=== PATIENT | male | born 1990 | race Caucasian/White ===

== ENCOUNTER → 2016-08-23 | Outpatient (CLI) | payer OTHER ==
[~2016-08-23] MED LIST: ESOM20CA PO; IBUP-1724 PO; OXYC5TAB84 PO; PSEU30TA36 PO
--- NOTE | 2016-08-23 08:42 | DI ---
Indication: ITS.REASON: R10.10 UPPER ABD PAIN PROCEDURE: US GALLBLADDER: Encounter: Initial Comparison: None Technique: Grayscale and color Doppler sonographic imaging of the right upper quadrant of the abdomen was performed. Findings: Hepatic parenchyma is homogeneous without evidence for focal mass. The gallbladder is abnormal with gallstones in the gallbladder neck and wall thickening over 5 mm. Sonographic Lopez's sign was reportedly negative. Both the intra and extrahepatic biliary system are of normal caliber with the common duct measuring 6 mm in dimension. Visualized portions of the head and body of the pancreas are unremarkable. The right kidney is present without collecting system dilatation. The right kidney measures 11.3 cm in length. Impression: Acute cholecystitis. Surgical consultation is recommended. .
--- NOTE | 2016-08-24 14:37 | ECHOF ---
DATE OF PROCEDURE August 23, [address] Bhavya Garcia This is a two-dimensional echo with spectral Doppler, color-flow and M-mode. It was obtained in a patient with chest pain and abnormal EKG. Left atrial dimension is normal. Left ventricle end-diastolic dimension is normal. Left ventricle wall thickness is normal. LV systolic function is normal with ejection fraction of 65%. Right atrium is normal. Right ventricle is normal. Aortic root dimension is normal. Mitral, aortic, tricuspid, and pulmonary valves are morphologically normal with trace of mitral and trace of tricuspid regurgitation with normal estimated pulmonary artery systolic pressure of 24. There is no pericardial effusion. IMPRESSION 1. Essentially normal echo with trivial mitral and tricuspid regurgitation. MTDD
== END ==
LOC: IMA 06:44
PROVIDERS: ATTEND Family Medicine
DX: K80.00 Calculus of gallbladder with acute cholecystitis without obstruction (principal); R94.31 Abnormal electrocardiogram [ECG] [EKG]
CPT/HCPCS: 93306

== ENCOUNTER 2016-09-04 10:39 | Day surgery (SDC) | payer OTHER ==
[~2016-09-04] VITALS: Ht 189.2 cm; Wt 104.4 kg
[2016-09-04] VITALS (29 sets, daily range): BP systolic 116–159; BP diastolic 58–95; PULSE 52–100; RESP 12–20; TEMP 97–98.1; O2SAT 93–100; Ht 189.2 cm; Wt 104.4 kg
[~2016-09-04 10:39] MED LIST changes: +LIDOCAINE 1% (10mg/ml) 2ml SDV INJ ONE; +LR 1,000 ML IV SCH
[2016-09-04] MEDS ORDERED: CEFAZOLIN 1 GRAM INJECTION IV ONE (12:00)
[2016-09-04] MEDS ORDERED: SALINE FLUSH 10ml SYRINGE ONE (12:14)
[2016-09-04] MEDS ORDERED: BUPIVACAINE 0.25% (2.5mg/ml) INJ 30ml SDV ONE (12:14)
[2016-09-04] MEDS ORDERED: FENTANYL 250mcg/5ml INJECTION ONE (12:26)
[2016-09-04] MEDS ORDERED: ROCURONIUM 50mg/5ml INJECTION IV ONE (12:27)
[2016-09-04] MEDS ORDERED: PROPOFOL 200mg 20 ML IV ONE (12:27)
[2016-09-04] MEDS ORDERED: LIDOCAINE 2% (20mg/ml) 5ml PF SDV ONE (12:27)
--- NOTE | 2016-09-04 12:28 | ANESPREOP ---
Anesthesia Record Date and Time DATE: 09/04/16 TIME: 12:02 Pre-Op Diagnosis Biliary colic Proposed Surgical Procedure ROBOTIC LAP RAFAEL NPO since: Midnight Allergies: Coded Allergies: No Known Drug Allergies (Verified Allergy, Unknown, 09/04/16) Ht/Wt/BMI Height: 6 ' 2.50 " Weight: 102.700 kg BMI: 28.7 kg/m2 Vital Signs Date Time Temp Pulse Resp B/P Pulse Ox O2 Delivery O2 Flow Rate FiO2 09/04/16 11:04 98.1 80 16 157/95 100 Room Air Medications Inpatient Medications Current Medications Medications (Trade) Dose Ordered Sig/Skip Start Time Stop Time Status Last Admin Dose Admin Lactated Ringer's (Lactated Ringers) 1,000 ml @ 50 mls/hr Q20H 09/04/16 07:00 09/04/16 11:41 50 MLS/HR Esomeprazole Mag Trihydrate (Nexium) 20 Mg Capsule, 1 TAB PO DAILY, (Reported) Last Taken: on 09/03/16 1200 Ibuprofen (Ibuprofen) 200 Mg Tablet, 2-4 TAB PO Q4H PRN for PAIN, (Reported) Last Taken: on Unknown Date & Time Oxycodone HCl (Oxycodone HCl) 5 Mg Tablet, 5 MG PO Q4HPRN PRN for PAIN, (Reported) Last Taken: on 09/03/16 2100 Pseudoephedrine HCl (Nasal & Sinus Decongestant ) 30 Mg Tablet, 1 TAB PO PRN, (Reported) Last Taken: on Unknown Date & Time Currently on Beta Thomas: No Medical/Surgical History Anesthesia PMH: Reports: *Angina (WITH GB ATTACK-DID HEART ECHO-NO PROBLEM), * Hypertension (POSSIBLE NOT ON MEDS YET), Reflux, Denies: *Diabetes, Anesthesia Reactions (NO AIRWAY ISSUES), Arthritis, Cancer, Clotting Problems, Glaucoma, Malignant Hyperthermia, Renal Disease, Sleep Apnea, Thyroid Disease Smoking Status: Current some day smoker Has pt. smoked today?: No # of Packs per Day: /7 # of Years: 3 Use Chewing Tobacco?: No Second Hand Exposure: No Substance Use Type: does not use Alcohol Intake: rarely Past Surgical History Orthopedic Surgeries: Abdominal Surgeries: Genitourinary Surgeries: Cardiac Surgeries: Endocrine Surgeries: Reproductive Surgeries: Neurological Surgeries: Ear Surgeries: Nose Surgeries: Throat Surgeries: Other Surgeries: Anesthesia Adverse Reactions: FOUND none Family Hx of Anesthesia Advers: none Hx of Motion Sickness: No Pertinent Findings EKG Rhythm: Sinus Rhythm Physical Exam Respiratory: Lungs clear Cardiovascular: FOUND Regular rate, rhythm Airway Assessment Mallampati Score: II TMD: 3 Fingerbreadths Neck Extension: Good Overall Assessment: No Airway Concerns ASA: 2 Plan Anesthesia Plan: GETA Discussion Discussed risks/options/alternatives of anesthesia and questions answered. Patient consents. Nursing pain assessment noted. Present: Family Member Attestation Statement Prior to the delivery of any anesthetic medication, I examined the patient, developed the plan, obtained the patient's consent and discussed the risk and benefits of the procedure with the patient/guardian. PEPE GENAO CRNA September 04, 2016 12:03
[2016-09-04] MEDS ORDERED: LIDOCAINE JELLY 2% 30ml TUBE ONE (12:29)
[2016-09-04] MEDS ORDERED: SEVOFLURANE 250 ML LIQUID IH ONE (12:39)
[2016-09-04] MEDS ORDERED: LACRI-LUBE EYE OINT 3.5 G TUBE ONE (12:45)
[2016-09-04] MEDS ORDERED: HYDROMORPHONE 2mg/ml INJECTION ONE (13:50)
[2016-09-04] MEDS ORDERED: ONDANSETRON 4mg/2ml INJECTION ONE (14:20)
[2016-09-04] MEDS ORDERED: ONDANSETRON 4mg/2ml INJECTION IV PRN ×2 (14:45→15:00)
[2016-09-04] MEDS ORDERED: METOCLOPRAMIDE 10mg/2ml INJECTION IV PRN (14:45)
[2016-09-04] MEDS ORDERED: MEPERIDINE 100 mg/ml VIAL IV PRN (14:45)
--- NOTE | 2016-09-04 14:49 | GSPOSTPROC ---
Immediate Operative Note DATE: 09/04/16 TIME: 14:47 Postop Diagnosis: Chronic cholecystitis Surgical Procedure: Other (Robotic laparoscopic cholecystectomy) Surgeon: Migdalia ASA: 2 CHAUNCEY RESTREPO MD September 04, 2016 14:49
[2016-09-04] MEDS ORDERED: PROMETHAZINE 25 MG INJECTION IV PRN (15:00)
[2016-09-04] MEDS ORDERED: MORPHINE SULFATE 10 MG SYRINGE IV PRN (15:00)
[2016-09-04] MEDS ORDERED: ACETAMINOPHEN 500 MG TABLET PO PRN (15:00)
--- NOTE | 2016-09-04 15:06 | ANESPO ---
Post-Op Note Date 09/04/16 Time: 15:06 Status Pt Participated in Evaluation: Pt participated in person Vital Signs Date Time Temp Pulse Resp B/P Pulse Ox O2 Delivery O2 Flow Rate FiO2 09/04/16 13:21 80 16 100 Room Air 09/04/16 12:24 140/82 09/04/16 11:04 98.1 Cardiovascular Function: Regular pulse Mental Status: Alert/oriented Pain Level Intensity: 6 (Treated) Hydration: IV infusing Complications during Recovery None apparent Follow-Up Instructions Instructions Per Surgeon PEPE GENAO CRNA September 04, 2016 15:06
[2016-09-04] MEDS: HYDROMORPHONE 2mg/ml INJECTION IV PRN ×4 (15:21→15:54)
--- NOTE | 2016-09-04 16:15 | NUR ---
ADMIT PATIENT IS ADMITTED TO ROOM 108 AT THIS TIME. PATIENT MOVED SELF FROM OR CART TO BED. PATIENT VITALS ARE STABLE AND PATIENT IS ON ROOM AIR. AT BEDSIDE. WILL CONTINUE TO MONITOR.
[2016-09-04] MEDS: IBUPROFEN 200 MG TABLET PO PRN (17:48)
--- NOTE | 2016-09-04 18:24 | NUR ---
STATUS PATIENT IS ALERT AND ORIENTED X3. PATIENT VITALS ARE STABLE AND PATIENT IS ON ROOM AIR. PATIENT DENIES CP, NAUSEA, AND SOA. PATIENT HAS NOT BEEN OUT BED AT THIS TIME. PATIENT DRESSINGS HAVE MINIMAL DRAINAGE THAT IS CIRCLED. THEY ARE OTHERWISE INTACT AND CLEAN. WILL CONTINUE TO MONITOR.
[2016-09-04] MEDS: OXYCODONE I.R. 5 MG TABLET PO PRN ×2 (20:57→21:29)
--- NOTE | 2016-09-04 21:19 | OPNOTEF ---
DATE OF OPERATION 09/04/2016 PREOPERATIVE DIAGNOSIS Chronic cholecystitis and cholelithiasis. POSTOPERATIVE DIAGNOSIS Chronic cholecystitis and cholelithiasis. OPERATION Multiport robotic laparoscopic cholecystectomy. SURGEON Dr. Negron ANESTHESIA General. ASA Class 2 FINDINGS The gallbladder appeared to be chronically inflamed. The gallbladder appeared to contain gallstones. The liver appeared normal. There were adhesions binding greater omentum to the outside surface of the gallbladder. DESCRIPTION OF OPERATION The patient did have injectable indocyanine green dye administered intravenously preoperatively. The patient was placed in supine position on the operating table. General anesthesia was satisfactorily induced. The abdomen was prepped and draped in routine sterile fashion. Bupivacaine 0.25% without epinephrine was infiltrated into the skin and underlying tissue at an infraumbilical incision site. An infraumbilical incision was made. A Veress needle was inserted into the peritoneal cavity through the incision. Pneumoperitoneum was established with carbon dioxide. The Veress needle was removed. A 12-mm da Chago camera port was placed at the infraumbilical incision. A 12-mm 30- degree da Chago laparoscope was inserted at the infraumbilical port. The skin and underlying structures at the abdominal wall were infiltrated with bupivacaine at a port site at the left upper quadrant of the abdomen at the midclavicular line. An incision was made at this site and an 8-mm da Chago instrument port was placed at this incision. The skin and underlying abdominal wall structures were infiltrated with bupivacaine at another incision site at the left side of the abdomen. An incision was made at this site and an [employer] children's nursery assistant port was placed at this incision. The skin and underlying abdominal wall structures were infiltrated with bupivacaine at a port site at the right upper quadrant of the abdomen. An incision was made at this area and an 8-mm da [place]ago instrument port was placed at this incision. The skin and underlying abdominal wall structures were infiltrated with bupivacaine at another port site at a more lateral location at the right side of the abdomen. An incision was made at this site and another 8-mm da Chago instrument port was placed at this incision. The patient was placed in reverse Trendelenburg position. The right side of the table was tilted up. The da [place]ago robotic system was brought up to the operating table. The da [place]ago robotic system was docked to the camera port and instrument ports. The da Chago 12-mm 30-degree laparoscope was inserted at the camera port. The [place] bipolar forceps was inserted at the 8-mm instrument port at the left upper quadrant of the abdomen associated with instrument arm #1. A Cadiere forceps was inserted at the 8-mm instrument port at the right upper quadrant of the abdomen associated with instrument arm #2. A ProGrasp forceps was inserted at the 8-mm instrument port at the right lateral location at the abdomen associated with instrument arm #3. These instruments were all placed into a position adjacent to the gallbladder. The surgeon then went from the patient's side at the operating table to the surgeon console. The ProGrasp forceps with instrument arm #3 was used to grasp the fundus of the gallbladder and elevate the gallbladder and reflect the liver up superiorly towards the right diaphragm. The infundibulum of the gallbladder was grasped with Cadiere forceps with instrument arm #2. Dissection was performed at the hepatocystic triangle. The cystic artery was dissected out and identified. The cystic duct was dissected out and identified. The cystic duct was demonstrated with Firefly fluorescence imaging at this time. Dissection was performed at the hepatocystic triangle until the only two structures remaining were the cystic duct and the cystic artery. A critical view of safety was achieved at this time. The hepatocystic triangle was cleared of all the fatty and fibrous tissue until the only two structures remaining were the cystic duct and the cystic artery. Two of the Hem-o-rubina clips were applied to the cystic artery. The cystic artery was divided between the Hem-o-rubina clips. Three of the Hem-o-rubina clips were applied to the cystic duct at the junction of the cystic duct and the gallbladder. The cystic duct was divided between the Hem-o-rubina clips with the curved dissecting scissors. Two of the Hem-o-rubina clips were left in place on the cystic duct stump. The monopolar curved scissors were then used to dissect the gallbladder out of the gallbladder bed. Tissue was coagulated with the monopolar curved scissors as the gallbladder was being dissected out of the gallbladder bed to maintain hemostasis. The gallbladder was completely dissected out of the gallbladder bed. Hemostasis was maintained during this time by coagulation of bleeding points at the gallbladder bed with the monopolar curved scissors. The gallbladder was placed in a position in the peritoneal cavity along the margin of the liver. The instruments were then removed from the instrument ports. The da Chago laparoscope was removed from the camera port. The da [place]ago robotic system was undocked from ports. The surgeon left the surgeon console and returned back to the side of the patient at the operating table. The da Chago 8.5-mm 30-degree laparoscope was inserted at one of the right-sided da Chago instrument ports. The specimen retrieval pouch was inserted at the camera port. The gallbladder was placed in the specimen retrieval pouch. The specimen retrieval pouch containing the gallbladder was brought out through the infraumbilical incision. The gallbladder was submitted as a specimen for study by the pathologist. The instrument ports were all removed. Carbon dioxide was removed from the peritoneal cavity by desufflation. The fascial layer of the infraumbilical incision was closed with a series of simple interrupted stitches using 0-Vicryl suture. The skin margins were then closed at all the incisions with subcuticular stitches using 4-0 Vicryl suture. Benzoin and 1/2-inch wide Steri-Strips were applied to the incisions. Band-Aids were applied to the incisions. The patient tolerated the operation well. The patient was transferred from the operating room to the recovery room in satisfactory condition. LENIN
[2016-09-05 01:12] VITALS: BP 119/66; PULSE 66; RESP 14; TEMP 98.7; O2SAT 96
[2016-09-05 04:53] VITALS: BP 115/64; PULSE 63; RESP 12; TEMP 97.2; O2SAT 97
[2016-09-05] MEDS: OXYCODONE I.R. 5 MG TABLET PO PRN ×2 (05:14→09:48)
[2016-09-05] MEDS: IBUPROFEN 200 MG TABLET PO PRN (05:14)
--- NOTE | 2016-09-05 05:15 | NUR ---
SHIFT SUMMARY PT ALERT AND ORIENTED X3, VITAL SIGNS STABLE ON ROOM AIR. DENIES C/P,N/V AND SOA. PT AMBULATES WELL WITH NO ASSISTANCE. WILL MAKE PT UP ADLIB IN HIS ROOM. PT HAS AMBULATED IN THE HALLS WITH STAFF AND TO AND FROM THE BATHROOM. PT HAS HAD MINIMAL PAIN WHICH INCREASES WHEN AMBULATING, PO PRN PAIN MEDICATION USED. WILL CONTINUE TO MONITOR.
[2016-09-05 07:24] VITALS: BP 122/68; PULSE 68; RESP 16; TEMP 97.8; O2SAT 96
[2016-09-05 08:00] VITALS: PULSE 68; RESP 16
--- NOTE | 2016-09-05 08:06 | NUR ---
PIERRE CM IN TO VISIT WITH PT. HE IS ALERT AND ORIENTED. HIS IS PRESENT. PT IS ALERT AND ORIENTED. PT PLANS TO DC HOME. HE DENIES DC NEEDS. ORACIO IS 1. CM CONTACT INFORMATION IS GIVEN. Addendum: 09/05/16 at 0807 by SYLVIE VOGT RN Amended: Links added.
--- NOTE | 2016-09-05 09:52 | NUR ---
DISCHARGE PT DISCHARGED TO HOME AT THIS TIME IN THE COMPANY OF HIS SIGNIFICANT OTHER. PT AMBULATED SELF TO THE FRONT ENTRANCE WITH THE SUPERVISION OF STAFF. DISCHARGE INSTRUCTIONS INCLUDING DIET, ACTIVITY, MEDICATIONS, FOLLOW UP APPOINTMENT, DC INSTRUCTIONS FOR CHOLECYSTECTOMY AND REPORTABLE S/S GIVEN AND REVIEWED WITH PATIENT. SCRIPT FOR ROXICODONE PREVIOUSLY GIVEN TO PT BY DR. RESTREPO. PT VERBALIZED UNDERSTANDING OF THESE INSTRUCTIONS AND HAD NO FURTHER QUESTIONS. IVL DISCONTINUED. ARMBAND REMOVED. PERSONAL BELONGINGS RETURNED.
--- NOTE | 2016-09-05 13:16 | PNF ---
DATE 09/05/2016 POSTOPERATIVE DAY # 1 HISTORY The patient is tolerating a regular diet. He had biscuits and gravy for breakfast. He is ambulating well. He has good pain control with oral analgesics. PHYSICAL EXAMINATION VITAL SIGNS: Temperature is 97.8 degrees oral. Pulse is 68. Respiratory rate is 16. Blood pressure is 122/68. Oxygen saturation is 96% on room air. ABDOMEN: All the abdominal incisions look good. IMPRESSION Doing well following multiport robotic laparoscopic cholecystectomy on 09/04/2016. PLAN Dismiss patient from [facility] today. TREATMENT I did give the patient a written prescription for oxycodone 5 mg one tablet p.o. every four hours p.r.n. pain (dispense 40 - no refills). MTDD
== END 2016-09-05 09:55 | disposition home or self-care (01) ==
LOC: SCU 10:39 → SRG 10:40 → SCU 09-05 09:55
PROVIDERS: ATTEND Surgery
DX: K80.10 Calculus of gallbladder with chronic cholecystitis without obstruction (principal); K82.8 Other specified diseases of gallbladder; R13.10 Dysphagia, unspecified; F17.210 Nicotine dependence, cigarettes, uncomplicated; Z79.1 Long term (current) use of non-steroidal anti-inflammatories (NSAID); Z79.899 Other long term (current) drug therapy
CPT/HCPCS: 47562; 99406; J0690; J1170; J2405; J2704; J3010; J7120; S2900